=== PATIENT | female | born 1960 | race Caucasian/White ===

== ENCOUNTER → 2020-04-09 | Outpatient (CLI) | payer BC, OTHER ==
[~2020-04-09] MED LIST: BREO ELLIPTA 11 EACH INH; CARAFATE 1 GM TA1 GM PO; CEFUROXIME500 MG PO; DIFLUCAN150 MG PO; MEDROL4 MG PO; MYLANTA MAXIMU355 ML PO; PRILOSEC10 M1 PO; PROVENTIL HFA6.7 GM INH; SINGULAIR10 MG PO; TRAZODONE HCL100 MG PO
== END ==
LOC: HEART 5 13:33
DX: R06.02 Shortness of breath (principal); R07.9 Chest pain, unspecified; R00.2 Palpitations; R94.2 Abnormal results of pulmonary function studies
CPT/HCPCS: 94010

== ENCOUNTER → 2020-04-16 | Outpatient (CLI) | payer BC, OTHER | LOC: NM 12:09 | DX: R07.9 Chest pain, unspecified (principal) | CPT/HCPCS: 78452; 93017; A9502; J2785 ==

== ENCOUNTER → 2020-04-21 | Outpatient (CLI) | payer BC, OTHER | LOC: KOH-I 08:41 | DX: Z03.89 Encounter for observation for other suspected diseases and conditions ruled out (principal); J43.9 Emphysema, unspecified | CPT/HCPCS: 71046 ==

== ENCOUNTER → 2020-07-07 | Outpatient (CLI) | payer BC, OTHER | LOC: KOH-I 11:00 | DX: R06.02 Shortness of breath (principal) | CPT/HCPCS: 71250 ==

== ENCOUNTER 2020-08-20 11:28 | Emergency (ER) | payer BC, OTHER ==
[~2020-08-20 11:28] MED LIST changes: -BREO ELLIPTA 11 EACH INH; -CARAFATE 1 GM TA1 GM PO; -MYLANTA MAXIMU355 ML PO; -PRILOSEC10 M1 PO; -SINGULAIR10 MG PO; -TRAZODONE HCL100 MG PO
[2020-08-20 12:54] LABS: HEMOGLOBIN 14.3 gm/dl (12.3-15.3); RED BLOOD COUNT 4.69 M/UL (4.00-5.10); WHITE BLOOD COUNT 7.4 K/UL (4.5-11.0)
[2020-08-20 13:15] LABS: BUN/CREATININE RATIO 16 (0-10)
[2020-08-20] MEDS ORDERED: CARAFATE 1 GM TA1 GM PO (16:28)
[2020-08-20] MEDS ORDERED: MYLANTA MAXIMU355 ML PO (16:28)
[2020-10-07] MEDS ORDERED: BREO ELLIPTA 11 EACH INH (08:03)
[2020-10-07] MEDS ORDERED: TRAZODONE HCL100 MG PO (08:03)
[2020-10-07] MEDS ORDERED: PRILOSEC10 M1 PO (08:03)
[2020-10-07] MEDS ORDERED: SINGULAIR10 MG PO (08:04)
== END 2020-08-20 16:42 | disposition home or self-care (01) ==
LOC: ER1 11:28
PROVIDERS: Physician Assistant
DX: K21.9 Gastro-esophageal reflux disease without esophagitis (principal); Z79.899 Other long term (current) drug therapy
CPT/HCPCS: 71045; 80053; 82550; 82553; 83690; 83874; 84484; 85025; 93005; 99285

== ENCOUNTER → 2020-10-07 | Day surgery (SDC) | payer BC ==
[~2020-10-07] MED LIST changes: +BREO ELLIPTA 11 EACH INH; +CARAFATE 1 GM TA1 GM PO; +MYLANTA MAXIMU355 ML PO; +PRILOSEC10 M1 PO; +SINGULAIR10 MG PO; +TRAZODONE HCL100 MG PO
== END | disposition home or self-care (01) ==
LOC: OR 07:12
DX: K31.9 Disease of stomach and duodenum, unspecified (principal); K21.00 Gastro-esophageal reflux disease with esophagitis, without bleeding; R63.6 Underweight; Z68.1 Body mass index [BMI] 19.9 or less, adult; J45.909 Unspecified asthma, uncomplicated; F41.9 Anxiety disorder, unspecified; F32.9 Major depressive disorder, single episode, unspecified; K22.8 Other specified diseases of esophagus; R10.11 Right upper quadrant pain
CPT/HCPCS: J2704; J7040

== ENCOUNTER → 2020-10-09 | Outpatient (CLI) | payer BC | LOC: US 09:22 | DX: R10.11 Right upper quadrant pain (principal) | CPT/HCPCS: 76705 ==

== ENCOUNTER 2020-10-10 17:04 | Emergency (ER) | payer BC | END 2020-10-10 18:11 | disposition left against medical advice (07) | LOC: ER1 17:04 | DX: Z53.21 Procedure and treatment not carried out due to patient leaving prior to being seen by health care provider (principal) ==

== ENCOUNTER 2020-10-13 10:46 | Emergency (ER) | payer BC | END 2020-10-13 12:18 | disposition left against medical advice (07) | LOC: ER1 10:46 | DX: Z53.21 Procedure and treatment not carried out due to patient leaving prior to being seen by health care provider (principal) ==

== ENCOUNTER 2020-10-24 14:14 | Emergency (ER) | payer BC ==
[2020-10-24 16:05] LABS: HEMOGLOBIN 14.4 gm/dl (12.3-15.3); RED BLOOD COUNT 4.75 M/UL (4.00-5.10); WHITE BLOOD COUNT 9.2 K/UL (4.5-11.0)
[2020-10-24 16:32] LABS: BUN/CREATININE RATIO 25 (0-10)
== END 2020-10-24 20:23 | disposition home or self-care (01) ==
LOC: ER1 14:14
PROVIDERS: Physician Assistant
DX: R53.1 Weakness (principal); J45.909 Unspecified asthma, uncomplicated
CPT/HCPCS: 80053; 81001; 84439; 84443; 85025; 99284

== ENCOUNTER 2021-07-14 16:45 | Emergency (ER) | payer OTHER | END 2021-07-14 22:13 | disposition home or self-care (01) | LOC: ER1 16:45 | DX: S13.9XXA Sprain of joints and ligaments of unspecified parts of neck, initial encounter (principal); V49.40XA Driver injured in collision with unspecified motor vehicles in traffic accident, initial encounter; Y92.410 Unspecified street and highway as the place of occurrence of the external cause | CPT/HCPCS: 70450; 72125; 99283 ==